=== PATIENT | male | born 2000 | race African-American/Black ===

== ENCOUNTER 2025-05-14 12:51 | Emergency (ER) | payer OTHER, SELFPAY ==
--- NOTE | ~2025-05-14 | XR_ITS ---
Right wrist Technique: PA, oblique, lateral, and ulnar deviation views were obtained. Clinical History: Pain Findings: No acute fracture or dislocation is seen. Osseous alignment is anatomic. Joint spaces are p reserved. Soft tissues are unremarkable. Impression: Unremarkable right wrist radiographs. Reviewed, dictated and finalized at location . Impression: Unremarkable right wrist radiographs.
[2025-05-14 13:19] VITALS: BP 118/82; PULSE 58; RESP 17; TEMP 36.2; O2SAT 99
--- NOTE | 2025-05-14 13:24 | ED_ITS ---
HPI - Extremity Injury (Upper) General Chief Complaint: Extremity Injury, Upper Stated Complaint: Right Hand Pain Time Seen by Provider: 05/14/25 13:34 Source: patient and RN notes reviewed Mode of arrival: ambulatory Limitations: no limitations History of Present Illness HPI narrative: 25-year-old male presents with concern for right wrist pain. Reports he fell 2 days ago only noted on my wrist. He reports he has used ice. He denies decreased strength, sensation, range of motion. MD complaint: injury to: right and hand Related Data Home Medications ?Medication ?Instructions ?Recorded ?Confirmed ?Last Taken ?Type No Home Medications 05/14/25 05/14/25 Unknown History Allergies Allergy/AdvReac Type Severity Reaction Status Date / Time No Known Allergies Allergy Verified 05/14/25 13:32 Review of Systems Review of Systems: CONSTITUTIONAL: Denies malaise, chills, sweats, or fever. SKIN: Denies rash or itching, open skin, laceration, abrasion, redness, warmth, swelling. MUSCULOSKELETAL: Reports right wrist pain NEUROLOGIC: Denies numbness, weakness All systems reviewed & are unremarkable except as noted in HPI and below PMFSH Comments At time of signature, agree with nursing past medical, surgical, social and family history. There is no relevant family history pertinent to the presenting complaint Exam Narrative: GENERAL: Well-appearing, well-nourished, and in no acute distress. HEAD: Normocephalic, atraumatic. EYES: PERRLA, conjunctivae clear NECK: Supple. CHEST: Speaks in full sentences. No respiratory distress. HEART: Regular rate and rhythm. Normal and equal peripheral pulses. EXTREMITIES: Right wrist, hand, digits have grossly normal strength and sensation, grossly normal range of motion. Mild of lateral edema about erythema or ecchymosis. 5/5 strength with digit flexion and extension. Normal sensation with sensitivity to light touch and pain. Lateral wrist tenderness. No open wounds, no skin tenting, no devitalized tissue or atrophy, no trophic changes, no obvious deformity, alignment normal, nearby joints and structures intact. Distal pulses palpable and equal bilaterally, skin warm, dry, pink. Capillary refill less than 3 seconds. SKIN: Warm, dry, no rash. NEURO: Alert and oriented x3. PSYCH: Normal mood and affect Course Course Emergency Course: Patient is aware of diagnosis, understands and agrees to treatment plan. Anticipatory guidance given. Patient agrees to follow-up as directed and is aware of reasons to seek care at the emergency department. Portions of this record may have been created with voice recognition software Level of Care: Express Care Visit Vital Signs Vital signs: Reviewed. MDM - Extremity Injury (Upper) MDM Narrative Medical decision making narrative: Patients injury and pain is consistent with musculoskeletal etiology. No signs of neurological or vascular compromise on exam. Compartments and tissues are soft without signs of compartment syndrome. Pain is felt appropriate for further evaluation on an outpatient basis. Imaging Data My impression: Images reviewed, interpreted by radiologist, agree, see report. Radiologist's impression: Right wrist Technique: PA, oblique, lateral, and ulnar deviation views were obtained. Clinical History: Pain Findings: No acute fracture or dislocation is seen. Osseous alignment is anatomic. Joint spaces are preserved. Soft tissues are unremarkable. Impression: Unremarkable right wrist radiographs. Critical Care Time Critical Care Time Critical Care Time: No Discharge Plan Discharge Clinical Impression: Sprain and strain of wrist Patient Disposition: Home Condition: Stable Instructions: Antibiotic Form, Wrist Sprain (ED) Additional Instructions: Your x-ray is normal Avoid activities that cause pain until the pain subsides. Ice to the area 20-30 minutes 4-6 times a day Elevate above heart Elastic wrap as directed for comfort for the next 5-7 days Tylenol for lesser pain Ibuprofen regularly for the next 2-3 days for the inflammation Follow up with your primary care provider if the condition is not improving within 1 week. If the condition worsens with numbness, tingling, decrease sensation with weakness seek treatment in the emergency room immediately. 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
== END 2025-05-14 14:24 | disposition home or self-care (01) ==
PROVIDERS: Emergency Provider Nurse Practitioner
DX: S66.911A Strain of unspecified muscle, fascia and tendon at wrist and hand level, right hand, initial encounter (principal); S63.501A Unspecified sprain of right wrist, initial encounter; W19.XXXA Unspecified fall, initial encounter
CPT/HCPCS: 73110; 99213; G0463